=== PATIENT | female | born 1995 | race Two or more races ===

== ENCOUNTER 2019-07-13 07:56 | Emergency (ER) | payer OTHER ==
[~2019-07-13] VITALS: Ht 160 cm; Wt 58.1 kg
[~2019-07-13 07:56] MED LIST: PRENATAL CAPLE1 EACH PO
[2019-07-13] MEDS ORDERED: ULTRACET PO (09:07)
[2019-07-13] MEDS ORDERED: ORPHENADRINE C100 MG PO (09:07)
== END 2019-07-13 09:45 | disposition home or self-care (01) ==
LOC: ER 07:56
DX: M54.5 Low back pain (principal)

== ENCOUNTER 2020-06-17 17:29 | Emergency (ER) | payer OTHER ==
[~2020-06-17] VITALS: Ht 160 cm; Wt 60.8 kg
[~2020-06-17 17:29] MED LIST changes: +ORPHENADRINE C100 MG PO; +ULTRACET PO
[2020-06-17] MEDS ORDERED: ALLEGRA ALLERG180 MG PO (18:51)
[2020-06-17] MEDS ORDERED: FLONASE ALLERG9.9 ML NASAL (18:51)
[2020-06-17] MEDS ORDERED: ORPHENADRINE C100 MG PO (18:58)
[2020-06-17] MEDS ORDERED: ACETAMINOPHEN500 M2 PO (18:58)
== END 2020-06-17 19:00 | disposition home or self-care (01) ==
LOC: ER 17:29
DX: J32.8 Other chronic sinusitis (principal)

== ENCOUNTER 2024-09-07 19:21 | Emergency (ER) | payer OTHER ==
[~2024-09-07] VITALS: Ht 160 cm; Wt 55.8 kg
[~2024-09-07 19:21] MED LIST changes: +ACETAMINOPHEN500 M2 PO; +ALLEGRA ALLERG180 MG PO; +FLONASE ALLERG9.9 ML NASAL
[2024-09-07 19:48] VITALS: BP 117/68; O2SAT 98
[2024-09-07] MEDS ORDERED: SINGULAIR4 MG (19:48)
[2024-09-07] MEDS ORDERED: ORPHENADRINE CITRATE 30 MG/ML AMPUL IM ONE (20:00)
[2024-09-07] MEDS ORDERED: TRIAMCINOLONE ACETONIDE 40 MG/ML VIAL IM ONE (20:00)
[2024-09-07] MEDS ORDERED: NORFLEX100MG PO (20:36)
== END 2024-09-07 20:55 | disposition home or self-care (01) ==
LOC: ER 19:23
DX: M79.652 Pain in left thigh (principal); Z88.6 Allergy status to analgesic agent
CPT/HCPCS: 73521; 96372; 99283; J2360; J3301